=== PATIENT | male | born 1985 | race Caucasian/White ===

== ENCOUNTER 2016-11-06 23:40 | Emergency (ER) | payer SELFPAY ==
[~2016-11-06] VITALS: Ht 185.4 cm; Wt 110.0 kg
[2016-11-06 23:44] VITALS: Ht 185.4 cm; Wt 110.0 kg
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
[2016-11-07] MEDS ORDERED: HYDROCODONE/APAP (10/325) TAB PO ONE
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
[2016-11-07] MEDS ORDERED: TRAM50TA2 PO (01:33)
[2016-11-07 02:05] VITALS: BP 140/78; PULSE 72; RESP 20; TEMP 98.9
== END 2016-11-07 01:40 | disposition home or self-care (01) ==
LOC: E/R 23:40
DX: S41.002A Unspecified open wound of left shoulder, initial encounter (principal); M25.512 Pain in left shoulder; W34.00XA Accidental discharge from unspecified firearms or gun, initial encounter; Y92.9 Unspecified place or not applicable; Z87.891 Personal history of nicotine dependence
CPT/HCPCS: 71010; 71250; 74176